=== PATIENT | male | born 1960 | race Caucasian/White ===

== ENCOUNTER 2016-10-08 06:39 | Inpatient (IN) | payer OTHER ==
[~2016-10-08] VITALS: Ht 182.9 cm; Wt 111.1 kg
--- NOTE | ~2016-10-08 | EKG ---
[address] [place] [address] ELECTROCARDIOGRAM REPORT Name: GEORGES PALOMO Room #: REG CLCassidy Nicole#: [id number] Admission: 10/08/16 Attend Phys: Jovanni Diaz MD Discharge: Date of : 58 Report #: [id number] THIS REPORT FOR: //name// [facility] Test Date: 2016-10-08 Test Time: 09:38:09 Pat Name: GEORGES PALOMO Department: Room: Gender: Record Label Internship: Bucky EDUARDO : 1960 Requested By: Jovanni Diaz Order Number: [id number] MD: David Leblanc Measurements Intervals [place] Rate: 50 P: -14 AK: 258 QRS: 48 QRSD: 102 T: 103 QT: 483 QTc: 441 Interpretive Statements Sinus rhythm Prolonged AK interval Abnormal R-wave progression, early transition Nonspecific T abnormalities, lateral leads Electronically Signed On 10-08-2016 13:08:17 DRUG COORDINATOR by David Leblanc [email or web address] <ELECTRONICALLY SIGNED> By: David Leblanc MD 10/08/16 1308 0938 7 David Leblanc MD /ELIU
--- NOTE | ~2016-10-08 | EKG ---
[address] [address] ELECTROCARDIOGRAM REPORT Name: GEORGES PALOMO Room #: 458-P DIS IN M.R.#: [id number] Admission: 10/08/16 Attend Phys: Jovanni Diaz MD Discharge: 10/09/16 Date of : 58 Report #: [id number] THIS REPORT FOR: //name// [facility] Test Date: 2016-10-09 Test Time: 06:52:49 Pat Name: GEORGES PALOMO Department: Room: 458 P Gender: M Application Trainer: juancho : 1960 Requested By: Jovanni Diaz Order Number: [id number] MD: David Leblanc Measurements Intervals [place] Rate: 57 P: -43 MN: 257 QRS: 54 QRSD: 83 T: 98 QT: 458 QTc: 446 Interpretive Statements Sinus rhythm Prolonged MN interval Abnormal R-wave progression, early transition Borderline repolarization abnormality Compared to ECG 10/08/2016 09:38:09 T-wave abnormality no longer present Electronically Signed On 10-09-2016 12:47:28 ADJUNCT PROFESSOR OF VOICE by David Leblanc [email or web address] <ELECTRONICALLY SIGNED> By: David Leblanc MD 10/09/16 1247 0652 0652 David Leblanc MD /EPI
--- NOTE | ~2016-10-08 | CATHLAB ---
[facility] [address] [place] [address] INVASIVE PROCEDURE REPORT Name: GEORGES PALOMO Room #: 458-P ADM IN M.R.#: [id number] Admission: 10/08/16 Attend Phys: Jovanni Diaz MD Discharge: Date of : 58 Date of Service: 10/08/16 0928 Report #: [id number] THIS REPORT FOR: //name// CC: Jovanni Covarrubias TYPE OF REPORT: Cardiac catheterization. INDICATION: Unstable angina, prior history of myocardial infarction with stent insertion. Full risks, benefits and alternatives of cardiac catheterization were explained to the patient. All questions were answered. Informed consent was obtained. A Barbeau test was performed on the right radial artery. The right wrist area was prepped and draped in a sterile manner. Lidocaine was given subcutaneously. A 6-Pashto sheath was inserted into the right radial artery via modified Seldinger technique. Nitroglycerin and verapamil was injected through the sheath. Five thousand units of heparin was given through peripheral IV. CORONARY ANATOMY: The left main artery is a large caliber vessel, with no flow-limiting lesions. The LAD is a epqxjrsf-ce-lcsrb size caliber vessel, travelling down the anterior wall and wrapping around the apex and terminating in the mid segment of the inferior wall. The LAD appears to supply the mid and distal segments of the inferior wall as well. There were no flow-limiting lesions in the LAD. There were some calcification and mild plaquing in the proximal and mid segments, less than 20%. The first diagonal artery is a moderate-size caliber vessel, with a severe proximal stenosis, 80%. The left circumflex artery has multiple stents in the proximal mid segments, patent with minimal residual stenosis. There is a stent extending into the first OM, patent with mild restenosis. Within this stented area is a jailed branch, the second OM, small caliber vessel with an ostial 70% stenosis. This is unchanged from his previous procedures and medical therapy is recommended. The RCA is a dominant vessel, with mild disease in the proximal and mid segments, less than 20%. The PDA is not identified. The mid and distal segments of the inferior wall are supplied by the LAD. A left ventriculogram was performed revealing ejection fraction of 45%, with focal hypokinesis of the anterior lateral segment. The LVEDP is approximately 23 mmHg. There is no gradient across the outflow tract. ANGIOPLASTY REPORT: A 6-Pashto guide was used and ACT was checked and [facility] [address] [place] [address] INVASIVE PROCEDURE REPORT Name: GEORGES PALOMO Room #: 458-P [facility] IN .R.#: [id number] Admission: 10/08/16 Attend Phys: Jovanni Diaz MD Discharge: Date of : 58 Date of Service: 10/08/16 0928 Report #: [id number] additional unit of heparin was given. I placed a Luge wire into the first diagonal artery. The proximal lesion was predilated with a 2.0 mm Euphora balloon. I then elected to place a 2.25 x 18 mm Resolute (drug-eluting stent), inflated up to 18 atmospheres. This stent was postdilated with a 2.5 mm noncompliant balloon, NC Euphora inflated up to 18 atmospheres. Final injections revealed FEI 3 blood flow with a 0% residual stenosis. IMPRESSION: 1. Successful insertion of a drug-eluting stent into the first diagonal artery. 2. Patent stents in the left circumflex/first obtuse marginal artery. 3. Severe ostial stenosis of a small second obtuse marginal artery, unchanged from prior procedures. Recommend medical therapy. 4. Mild segmental left ventricular dysfunction. 5. Recommend dual antiplatelet therapy. <ELECTRONICALLY SIGNED> By: Jovanni Diaz MD 10/09/16 0815 0928 1009 Jovanni Diaz MD /nt
--- NOTE | ~2016-10-08 | H ---
[facility] [address] [address] HISTORY AND PHYSICAL Name: GEORGES PALOMO Room #: 458-P [facility] IN M.R.#: [id number] Admission: 10/08/16 Attend Phys: Jovanni Diaz MD Discharge: 10/09/16 Date of : 58 Report #: [id number] THIS REPORT FOR: //name// For History and Physical, please see office documentation/handwritten note in the patient's medical record. <ELECTRONICALLY SIGNED> By: Jovanni Diaz MD 10/14/16 0808 1534 Jovanni Diaz MD /
--- NOTE | ~2016-10-08 | D ---
[facility] [place] [address] DISCHARGE SUMMARY Name: GEORGES PALOMO Room #: 458-P [facility] IN M.R.#: [id number] Admission: 10/08/16 Attend Phys: Jovanni Diaz MD Discharge: 10/09/16 Date of : 58 Report #: [id number] THIS REPORT FOR: //name// CC: Jovanni Covarrubias FINAL DIAGNOSES: 1. Unstable angina status post coronary intervention. 2. Paroxysmal atrial fibrillation status post history of conversion. 3. Hypertension. 4. Hypercholesterolemia. 5. Sleep apnea. HOSPITAL COURSE: The patient presented electively for cardiac catheterization. In July 2016, he presented with a mms-LH-dnuwxklad myocardial infarction, undergoing placement of stents to the left circumflex/first obtuse marginal artery. He also has a history of atrial fibrillation status post cardioversion. He presented with chest discomfort. Cardiac catheterization revealed patent stents in the left circumflex artery. There is a severe occlusion in the first diagonal artery, undergoing placement of a drug-eluting stent. He has remained hemodynamically stable overnight. The rhythm has remained sinus. In regards to his atrial fibrillation medications, there is a conflict with Pradaxa and Multaq. Since he will be on triple anti-thrombotic therapy, he will be discharged on aspirin 81 mg, Plavix 75 mg and Eliquis 2.5 mg twice a day. In addition, he will continue with Lipitor 40 mg daily, Multaq 400 mg twice a day, Toprol XL 100 mg daily and Prozac. He has given instructions for followup in the office. <ELECTRONICALLY SIGNED> By: Jovanni Diaz MD 10/10/16 0757 0823 0916 Jovanni Diaz MD /nt
[~2016-10-08 06:39] MED LIST: ASPIR 8181 MG PO; ATORVASTATIN CA40 MG PO; CLOPIDOGREL75 MG PO; FLOMAX0.4 MG PO; MOBIC15 MG PO; PRADAXA150 MG PO; PROZAC40 MG PO; TOPROL XL100 MG PO
[2016-10-08] MEDS ORDERED: MULTAQ400 MG PO (07:01)
[2016-10-08 07:10] VITALS: BP 146/87
[2016-10-08 07:23] LABS: HEMATOCRIT 42.1 % (42.0-52.0); HEMOGLOBIN 14.3 gm/dL (14.0-18.0); MCH 30.6 pg (26.0-34.0); MCHC 33.9 % (28.0-37.0); MCV 90.4 fL (80.0-100.0); RBC 4.66 mil/uL (4.50-6.00); RDW 13.8 % (10.5-14.5); WBC 7.8 thou/uL (4.0-11.0)
[2016-10-08 07:39] LABS: CALCIUM 9.1 mg/dL (8.5-10.1); CREATININE 1.2 mg/dL (0.6-1.3); POTASSIUM 4.3 mmol/L (3.5-5.1)
[2016-10-08 17:08] VITALS: BP 126/79
[2016-10-08 19:38] VITALS: BP 139/76
[2016-10-09 04:51] VITALS: BP 140/72
[2016-10-09 05:36] LABS: HEMATOCRIT 40.9 % (42.0-52.0); HEMOGLOBIN 13.6 gm/dL (14.0-18.0); MCH 30.6 pg (26.0-34.0); MCHC 33.3 % (28.0-37.0); MCV 91.8 fL (80.0-100.0); RBC 4.46 mil/uL (4.50-6.00); RDW 13.6 % (10.5-14.5); WBC 8.5 thou/uL (4.0-11.0)
[2016-10-09 05:55] LABS: CALCIUM 8.4 mg/dL (8.5-10.1); POTASSIUM 4.1 mmol/L (3.5-5.1); TROPONIN-I 0.05 ng/mL (<0.04-0.07)
[2016-10-09 08:00] VITALS: BP 117/64
[2016-10-09] MEDS ORDERED: ELIQUIS2.5 MG PO (08:16)
[2016-10-09 09:07] VITALS: BP 117/64
== END 2016-10-09 10:13 | disposition home or self-care (01) | DRG 247 ==
LOC: CATH 06:39 → 4W 17:27
PROVIDERS: Internal Medicine Cardiovascular Disease
PROC: B2111ZZ Fluoroscopy of Multiple Coronary Arteries using Low Osmolar Contrast (ICD-10-PCS; principal; 2016-10-08)
PROC: B2151ZZ Fluoroscopy of Left Heart using Low Osmolar Contrast (ICD-10-PCS; principal; 2016-10-08)
PROC: 027034Z Dilation of Coronary Artery, One Artery with Drug-eluting Intraluminal Device, Percutaneous Approach (ICD-10-PCS; principal; 2016-10-08)
PROC: 4A023N7 Measurement of Cardiac Sampling and Pressure, Left Heart, Percutaneous Approach (ICD-10-PCS; principal; 2016-10-08)
DX: I25.110 Atherosclerotic heart disease of native coronary artery with unstable angina pectoris (principal); I48.0 Paroxysmal atrial fibrillation; I10 Essential (primary) hypertension; I25.5 Ischemic cardiomyopathy; E78.00 Pure hypercholesterolemia, unspecified; G47.33 Obstructive sleep apnea (adult) (pediatric); I25.2 Old myocardial infarction; Z95.5 Presence of coronary angioplasty implant and graft
CPT/HCPCS: 10045

== ENCOUNTER → 2018-01-25 | Outpatient (CLI) | payer OTHER ==
[~2018-01-25] MED LIST changes: +ELIQUIS2.5 MG PO; +MULTAQ400 MG PO
--- NOTE | ~2018-01-25 | 2DMMODE ---
[facility] [address] [place] [address] 2 D/M-MODE ECHOCARDIOGRAM Name: GEORGES PALOMO Room #: REG [id number] Admission: 01/25/18 Attend Phys: Jovanni Diaz MD Discharge: Date of : 58 Date of Service: 01/25/18 1503 Report #: [id number] THIS REPORT FOR: //name// APPROVED REPORT Study performed: 01/25/2018 14:20:48 EXAM: Comprehensive 2D, Doppler, and color-flow Echocardiogram Patient Location: Out-Patient Room #: Echo lab 1 Status: routine BSA: 2.38 HR: 91 bpm BP: 144/86 mmHg Other Information Study Quality: Technically Difficult Indications Atrial Fibrillation CAD Hypertension/HDD 2D Dimensions IVC: 15.00 mm Volumes Left Atrial Volume (Systole) Single Plane 4CH: 69.49 mL Single Plane 2CH: 71.77 mL LA ESV Index: 34.00 mL/m2 Aortic Valve AoV Peak Arnie.: 1.65 m/s AO Peak Gr.: 10.84 mmHg LVOT Max P.34 mmHg LVOT Max V: 1.26 m/s Mitral Valve MV Decel. Time: 199.61 ms MV E Max Arnie.: 1.13 m/s IVRT: 83.04 ms Pulmonary Valve PV Peak Arnie.: 1.18 m/s PV Peak Gr.: 5.57 mmHg Left Ventricle [facility] [address] [place] [address] 2 D/M-MODE ECHOCARDIOGRAM Name: GEORGES PALOMO Room #: REG CL [facility].#: [id number] Admission: 01/25/18 Attend Phys: Jovanni Diaz MD Discharge: Date of : 58 Date of Service: 01/25/18 1503 Report #: [id number] The left ventricle is normal size. There is normal left ventricular wall thickness. The left ventricular systolic function is normal. The left ventricular ejection fraction is within the normal range. LVEF is 55-60%. This study is not technically sufficient to allow evaluation of the LV diastolic function due to atrial fibrillation. Right Ventricle The right ventricle is normal size. The right ventricular systolic function is normal. Atria Left atrium is dilated. Right atrium is borderline dilated. Aortic Valve The aortic valve is normal in structure. No aortic regurgitation is present. There is no aortic valvular stenosis. Mitral Valve The mitral valve is normal in structure. Trace mitral regurgitation. No evidence of mitral valve stenosis. Tricuspid Valve The tricuspid valve is normal in structure. There is no tricuspid valve regurgitation noted. Pulmonic Valve The pulmonary valve is normal in structure. There is no pulmonic valvular regurgitation. Great Vessels The aortic root is normal in size. IVC is normal in size and collapses >50% with inspiration. Pericardium There is no pericardial effusion. <Conclusion> The left ventricle is normal size. The left ventricular systolic function is normal. The right ventricle is normal size. Left atrium is dilated. The aortic valve is normal in structure. [facility] [address] [place] [address] 2 D/M-MODE ECHOCARDIOGRAM Name: GEORGES PALOMO Room #: REG CL [facility].#: [id number] Admission: 01/25/18 Attend Phys: Jovanni Diaz MD Discharge: Date of : 58 Date of Service: 01/25/18 1503 Report #: [id number] Trace mitral regurgitation. There is no tricuspid valve regurgitation noted. <ELECTRONICALLY SIGNED> By: Jovanni Diaz MD 01/25/18 1503 1503 150 Jovanni Diaz MD /INF
== END ==
LOC: CV 07:51
DX: I25.10 Atherosclerotic heart disease of native coronary artery without angina pectoris (principal)

== ENCOUNTER → 2018-03-01 | Outpatient (CLI) | payer OTHER ==
[2018-03-01 08:23] LABS: HEMATOCRIT 44.2 % (42.0-52.0); HEMOGLOBIN 15.2 gm/dL (14.0-18.0); MCH 31.2 pg (26.0-34.0); MCHC 34.4 g/dL (28.0-37.0); MCV 90.7 fL (80.0-100.0); RBC 4.87 mil/uL (4.50-6.00); RDW 13.9 % (10.5-14.5); WBC 7.3 thou/uL (4.0-11.0)
[2018-03-01 08:29] LABS: CALCIUM 8.8 mg/dL (8.5-10.1); CREATININE 1.2 mg/dL (0.7-1.3); POTASSIUM 4.7 mmol/L (3.5-5.1)
[2018-03-01 08:35] LABS: ALBUMIN 4.2 g/dL (3.4-5.0); TOTAL BILIRUBIN 0.7 mg/dL (<0.1-1.0); TOTAL PROTEIN 7.2 g/dL (6.4-8.2)
== END ==
LOC: LAB 07:44
PROVIDERS: Internal Medicine Cardiovascular Disease
DX: I25.10 Atherosclerotic heart disease of native coronary artery without angina pectoris (principal); I89.8 Other specified noninfective disorders of lymphatic vessels and lymph nodes; J84.10 Pulmonary fibrosis, unspecified; M47.815 Spondylosis without myelopathy or radiculopathy, thoracolumbar region

== ENCOUNTER 2018-03-05 06:40 | Outpatient (CLI) | payer OTHER ==
[~2018-03-05] VITALS: Ht 182.9 cm; Wt 108.4 kg
--- NOTE | ~2018-03-05 | P ---
[facility] [place] [address] PROCEDURE REPORT Name: GEORGES PALOMO Room #: 208-P [facility]..#: [id number] Admission: 03/05/18 Attend Phys: David Leblanc MD Discharge: Date of : 58 Report #: [id number] THIS REPORT FOR: //name// CC: Loyd Leblanc DATE OF SERVICE: 03/05/2018 PREOPERATIVE DIAGNOSIS: Atrial fibrillation. POSTOPERATIVE DIAGNOSIS: Atrial fibrillation. HISTORY: The patient is a 57-year-old male with a history of atrial fibrillation, here for an AFib ablation. PROCEDURES PERFORMED: 1. Atrial fibrillation ablation, CPT code 17186. 2. 3D mapping, CPT code 35430. 3. Intracardiac echo, CPT code 33547. DESCRIPTION OF PROCEDURE: The patient underwent informed consent. We discussed the details of the procedure including the risks include, which include, but not limited to bleeding, infection, vascular damage as well as stroke or NH. He understood these risks and was willing to proceed. Prior to the ablation, I discussed that it appeared that he had a persistent SVC and that we may need to obtain subclavian access, which is unusual for such a case, but he was willing to proceed with this as well. As such, the patient was brought to the EP laboratory in the fasting and unsedated state. On his cardiac CT scan, there was evidence of a persistent SVC. Given that I would need to perform phrenic nerve pacing for the ablation, I decided to perform bilateral venograms prior to sedating the patient. The left venogram showed that there was a persistent SVC that continued as the coronary sinus and entered the right atrium. A right-sided venogram showed that the right subclavian vessel did not enter the atrium via traditional course, but crossed over and connected with the persistent SVC. As such, phrenic nerve pacing would potentially not be possible for cryoablation. As such, the patient was sedated in a standard fashion and I obtained access to the right femoral vein times 3 placing an 8-Kyrgyz, 9-Kyrgyz and 7-Kyrgyz short sheath using the modified Seldinger technique. Next, I placed a decapolar catheter, which entered into the persistent SVC and I could advance this up the coronary sinus up into the SVC beyond the cardiac silhouette. I attempted to advance this and cross the midline so I could potentially pace the right subclavian, but this deemed challenging. As such, I attempted to pace the right atrium with the decapolar catheter high in the right atrium. This was unsuccessful; therefore, I opened up a Lasso catheter and created a 3-D geometry of the right atrium and [facility] [address] [place] [address] PROCEDURE REPORT Name: GEORGES PALOMO Room #: 208-P [facility] BIN Nicole#: [id number] Admission: 03/05/18 Attend Phys: David Leblanc MD Discharge: Date of : 58 Report #: [id number] paced all along the superior aspect of the right atrium. I was not able to pace the phrenic from the most superior aspect of the right atrium. As such, I obtained access to the left axillary vein x 1 and placed a 6-Kyrgyz short sheath using a modified Seldinger technique. I then performed a venogram via this and I was able to localize the vessel that crossed to the right subclavian vein. I therefore advanced a diagnostic quadripolar catheter via this branch at where I thought the subclavian must sit. Pacing here at high output resulted in phrenic nerve capture. As such, I could proceed with ablation of his atrial fibrillation using a cryoballoon. Of note, with intracardiac ultrasound, there were 2 left-sided veins that shared a common ostium. There was a large left atrial appendage and there were separate right superior and right inferior pulmonary veins. He did have a nice thin interatrial septum, but did have a large patent foramen ovale. Furthermore, there was a very large coronary sinus ostium. I therefore placed my long wire across the PFO and placed the wire deep into the left superior pulmonary vein. I then advanced my SL1 sheath into the right atrium near the level of the PFO. Prior to performing transseptal, I did give the patient 10,000 of heparin. I then pulled my wire back and pulled my SL1 out of the PFO and into the interatrial septum, had a nice anterior position along the mid septum. Using my Trafford needle, I was able to cross the septum quite easily, and I then exchanged the SL1 for the cryocath sheath. Next, we started the ablation. At baseline, the patient was in atrial fibrillation with a ventricular rate of 940 milliseconds, QRS duration 85 milliseconds, QT interval 365 milliseconds. I performed a total of 4 freezes in the left superior pulmonary vein. The attempts were not very good. The most negative temperature I could get was -34. On the fourth freeze, I finally isolated the vessel in about 29 seconds and I performed a freeze here for 4 minutes. I then turned my attention to the left inferior pulmonary vein and performed 3 freezes, one was 240 seconds, the next was 300 seconds and the final freeze was 270 milliseconds. The maximum minus temperature was -36, -38 and -42. The vein still was not isolated. I then turned my attention to the right superior pulmonary vein and we performed phrenic nerve pacing from our quadripolar catheter. This vein isolated during the first freeze as the attempts were very cold. There was some mild weakening of the phrenic nerve, but this resolved completely after approximately a minute or 2. I therefore performed one additional freeze of 4 minutes duration with a maximal negative temperature of -33 degrees. This vessel was clearly isolated. Next, I turned my attention to the right inferior pulmonary vein and this vein had a challenging anatomy. Some of this was likely my transseptal site. I performed a total of 3 freezes in this vein, all of 4 minutes duration and there was still some persistence of electrograms noted. As such, I performed a cardioversion and I interrogated the veins; therefore it became clear that the left-sided veins remained connected and therefore, I decided to open up a SmartTouch ThermoCool and I performed a second transseptal using another SL1 sheath and I therefore isolated this vein very easily. There was an area along the anterior heidy that had some small electrograms and after about 30 seconds of ablation at this site, there was isolation of the left superior pulmonary vein. I did perform ablation along [address] [address] PROCEDURE REPORT Name: GEORGES PALOMO Room #: 208-P [facility] Bonnie#: [id number] Admission: 03/05/18 Attend Phys: David Leblanc MD Discharge: Date of : 58 Report #: [id number] this heidy as there was persistence of large signals based on her MAP. I then moved the Lasso catheter into the common ostium and into the inferior and superior branches and there was clearly entrance and exit block. I then turned my attention to the right inferior pulmonary vein. This vein remained connected. There was an area of connection along the inferior anterior aspect of this vessel based on mapping. Ablation along these electrograms resulted in isolation with entrance and exit block. As such, this procedure was concluded and quite long in duration due to the persistent SVC, I needed to obtain access there at the somewhat challenging transseptal given that there is no standard way to perform this transseptal without the SVC and difficulty isolating the vessels. I did discuss with the patient that if he were to require pacemaker in the future that right-sided device would not be an option at all and that most likely, a left-sided device via his persistent SVC would be the most prudent approach. Post ablation, the patient was in sinus rhythm with sinus cycle length of 835 milliseconds, IL interval 240 milliseconds, QRS duration 85 milliseconds with a QT interval 460 milliseconds. As such, the catheters were pulled to the right atrium. I used intracardiac ultrasound to verify that there was no pericardial effusion. The patient received systemic protamine and once ACT was within acceptable range, catheters and sheaths were pulled. Hemostasis was obtained and the patient awoke neurologically and hemodynamically intact. CONCLUSIONS: 1. Successful atrial fibrillation ablation using combination SmartTouch and cryoablation. 2. Evidence of entrance and exit block of all vessels. 3. 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 By: 1546 0437 David Leblanc MD /nt
--- NOTE | ~2018-03-05 | D ---
[facility] [place] [address] DISCHARGE SUMMARY Name: GEORGES PALOMO [id number] Admission: 03/05/18 Attend Phys: David Leblanc MD Discharge: Date of : 58 Report #: [id number] THIS REPORT FOR: //name// CC: Loyd Leblanc DISCHARGE DIAGNOSES: 1. Atrial fibrillation. 2. Persistent superior vena cava. PROCEDURES PERFORMED: Atrial fibrillation ablation. HISTORY OF PRESENT ILLNESS: The patient is a 57-year-old male with a history of atrial fibrillation, here for an AFib ablation. On his preoperative cardiac CT scan, there was evidence for a persistent SVC. Prior to the ablation, we performed a venogram of both the right and left upper extremities. The left upper extremity showed a persistent SVC. The right venogram showed that the right subclavian did not enter the right atrium, but actually connected with the persistent SVC. An AFib ablation was performed and was successful without complications. I did obtain left subclavian access, so that I could perform pacing of his right phrenic nerve. All veins were successfully isolated with a combination of cryoablation and radiofrequency ablation. HOSPITAL COURSE: The patient was monitored in the CCU overnight. The patient did well without any issues. The patient denied any chest pain, shortness of breath, fevers or chills. PHYSICAL EXAMINATION: HEART: Regular rate and rhythm. LUNGS: Clear to auscultation. SKIN: His access sites at the left subclavian and the right femoral groin region show no significant hematoma or bruising. RADIOGRAPHIC DATA: He did have a chest x-ray this morning, which showed no evidence of pneumothorax. The patient on telemetry had no atrial fibrillation, but did have 2-3 bursts of atrial tachycardia, the longest of which lasted less than 10 seconds. As such, the patient was deemed stable for discharge home. We did discuss that given his left persistent SVC that if he were to need a pacemaker implanted in the future, this will make it slightly more challenging. However, he does not have the option of having a pacemaker placed from the right side, as there is no direct connection from the right subclavian to the right atrium. He will continue with Multaq therapy and anticoagulation. [facility] [address] [place] [address] DISCHARGE SUMMARY Name: GEORGES PALOMO Room #: 208-P [facility] Nicole#: [id number] Admission: 03/05/18 Attend Phys: David Leblanc MD Discharge: Date of : 58 Report #: [id number] Discharge instructions were reviewed and he will see me back in the clinic in approximately 3 months. By: 1145 1213 David Leblanc MD /nt
[2018-03-05] MEDS ORDERED: ELIQUIS5 MG PO (06:58)
[2018-03-05 07:09] VITALS: BP 135/88
[2018-03-05 07:32] LABS: HEMATOCRIT 42.7 % (42.0-52.0); HEMOGLOBIN 14.6 gm/dL (14.0-18.0); MCHC 34.2 g/dL (28.0-37.0); MCV 90.9 fL (80.0-100.0); RBC 4.71 mil/uL (4.50-6.00); RDW 13.9 % (10.5-14.5); WBC 6.3 thou/uL (4.0-11.0)
[2018-03-05 07:41] LABS: APTT 25.9 Seconds (24.5-32.8)
[2018-03-05 07:52] LABS: CALCIUM 8.6 mg/dL (8.5-10.1); CREATININE 1.2 mg/dL (0.7-1.3); POTASSIUM 4.6 mmol/L (3.5-5.1)
[2018-03-05 07:57] LABS: TOTAL BILIRUBIN 0.6 mg/dL (<0.1-1.0); TOTAL PROTEIN 7.1 g/dL (6.4-8.2)
[2018-03-05 16:00] VITALS: BP 135/89
[2018-03-05 19:46] VITALS: BP 114/73
[2018-03-05 23:39] VITALS: BP 138/74
[2018-03-06 05:27] VITALS: BP 137/75
[2018-03-06 08:00] VITALS: BP 128/82
[2018-03-06 12:00] VITALS: BP 136/82
[2018-03-06 12:07] VITALS: BP 136/82
== END 2018-03-06 12:35 | disposition home or self-care (01) ==
LOC: CATH 06:40 → 2N 16:07 → CATH 03-06 12:35
PROVIDERS: Internal Medicine Cardiovascular Disease
DX: I48.91 Unspecified atrial fibrillation (principal); I10 Essential (primary) hypertension; I25.2 Old myocardial infarction; E78.5 Hyperlipidemia, unspecified; G47.33 Obstructive sleep apnea (adult) (pediatric); Z98.890 Other specified postprocedural states; Z87.442 Personal history of urinary calculi; Z95.5 Presence of coronary angioplasty implant and graft; Z87.891 Personal history of nicotine dependence; Z98.52 Vasectomy status; Z79.82 Long term (current) use of aspirin; Z79.899 Other long term (current) drug therapy
CPT/HCPCS: 10081; 62110; 62900; 70005

== ENCOUNTER → 2019-01-24 | Outpatient (CLI) | payer OTHER ==
[~2019-01-24] MED LIST changes: +ELIQUIS5 MG PO
== END ==
LOC: NUC 07:24
DX: I25.10 Atherosclerotic heart disease of native coronary artery without angina pectoris (principal); E78.5 Hyperlipidemia, unspecified; I48.91 Unspecified atrial fibrillation; I10 Essential (primary) hypertension; Z87.891 Personal history of nicotine dependence

== ENCOUNTER → 2019-03-04 | Outpatient (CLI) | payer OTHER ==
[~2019-03-04] VITALS: Ht 182.9 cm; Wt 115.2 kg
--- NOTE | ~2019-03-04 | P ---
[facility] [place] [address] PROCEDURE REPORT Name: GEORGES PALOMO Room #: REG BIN Lang.#: [id number] Admission: 03/04/19 ������������������ Attend Phys: David Leblanc MD Discharge: ������������������ Date of : 58 Report #: [id number] THIS REPORT FOR: //name// CC: Jovanni Leblanc PROCEDURE: Cardioversion. PREOPERATIVE DIAGNOSIS: Atrial fibrillation. POSTOPERATIVE DIAGNOSIS: Atrial fibrillation. DESCRIPTION OF PROCEDURE: The patient underwent informed consent. He was prepped in the standard fashion. The patient was sedated by the Anesthesiology Service. Once sedated, he underwent a 200 joule synchronized cardioversion with sabianist of sinus rhythm. There were no procedure related complications. CONCLUSIONS: Successful DC cardioversion with sabianist of sinus rhythm. ��������������������������������������������� ���������������������������������������� By: ��������������������������������������������� 1129 08 David Leblanc MD /nt
[2019-03-04 07:42] VITALS: BP 133/76
[2019-03-04 08:00] LABS: HEMATOCRIT 41.6 % (42.0-52.0); MCHC 33.6 g/dL (28.0-37.0); MCV 92.2 fL (80.0-100.0); RBC 4.51 mil/uL (4.50-6.00); RDW 14.3 % (10.5-14.5); WBC 6.1 thou/uL (4.0-11.0)
[2019-03-04 08:12] LABS: CALCIUM 8.9 mg/dL (8.5-10.1); CREATININE 1.1 mg/dL (0.7-1.3)
[2019-03-04 08:18] LABS: ALBUMIN 3.9 g/dL (3.4-5.0); TOTAL BILIRUBIN 0.6 mg/dL (<0.1-1.0); TOTAL PROTEIN 7.3 g/dL (6.4-8.2)
[2019-03-04 08:19] LABS: APTT 28.2 Seconds (24.5-32.8); PROTIME 10.4 Seconds (9.3-11.4)
== END | disposition home or self-care (01) ==
LOC: CATH 07:23
PROVIDERS: Internal Medicine Cardiovascular Disease
DX: I48.91 Unspecified atrial fibrillation (principal); I10 Essential (primary) hypertension; E78.5 Hyperlipidemia, unspecified; I25.2 Old myocardial infarction; E66.09 Other obesity due to excess calories; G47.30 Sleep apnea, unspecified; K21.9 Gastro-esophageal reflux disease without esophagitis; Z87.891 Personal history of nicotine dependence; Z79.01 Long term (current) use of anticoagulants; Z87.442 Personal history of urinary calculi; Z98.52 Vasectomy status; Z79.899 Other long term (current) drug therapy; Z98.890 Other specified postprocedural states
CPT/HCPCS: 62110; 62900

== ENCOUNTER → 2020-10-05 | Outpatient (CLI) | payer OTHER | LOC: LAB 07:34 | PROVIDERS: ATTEND Internal Medicine Cardiovascular Disease | DX: Z01.812 Encounter for preprocedural laboratory examination (principal); Z20.822 Contact with and (suspected) exposure to COVID-19 ==

== ENCOUNTER → 2020-10-10 | Outpatient (CLI) | payer OTHER ==
[~2020-10-10] VITALS: Ht 182.9 cm; Wt 119.7 kg
[2020-10-10 10:00] VITALS: BP 151/87
[2020-10-10 10:20] LABS: ABSOLUTE NEUTROPHILS 4.4 thou/uL (1.4-8.2); EOSINOPHILS 2.4 % (0.0-3.0); HEMATOCRIT 43.4 % (42.0-52.0); HEMOGLOBIN 14.6 gm/dL (14.0-18.0); LYMPHOCYTES 20.6 % (24.0-44.0); MCH 31.2 pg (26.0-34.0); MCHC 33.7 g/dL (28.0-37.0); MCV 92.7 fL (80.0-100.0); PLATELET COUNT 194 thou/uL (150-400); RBC 4.69 mil/uL (4.50-6.00); RDW 13.4 % (10.5-14.5); WBC 6.4 thou/uL (4.0-11.0)
[2020-10-10 10:29] LABS: CREATININE 1.1 mg/dL (0.7-1.3); POTASSIUM 4.1 mmol/L (3.5-5.1)
[2020-10-10 10:35] LABS: TOTAL BILIRUBIN 0.9 mg/dL (0.2-1.0); TOTAL PROTEIN 7.2 g/dL (6.4-8.2)
[2020-10-10 10:40] LABS: APTT 25.3 Seconds (24.5-32.8); PROTIME 10.3 Seconds (9.3-11.4)
--- NOTE | 2020-10-10 11:52 | EKG ---
[facility] [place] [address] [place] [address] ELECTROCARDIOGRAM REPORT Name: GEORGES PALOMO Room #: REG CLI [facility].#: [id number] Admission: 10/10/20 Attend Phys: David Leblanc MD Discharge: Date of : 58 Report #: [id number] [facility] Test Date: 2020-10-10 Test Time: 11:14:03 Pat Name: GEORGES PALOMO Department: Room: Gender: Client Experience Manager: SBULOW : 1960 Requested By: David Leblanc Order Number: [id number] MD: Mohit Brooks Measurements Intervals [place] Rate: 53 P: -31 UT: 290 QRS: 44 QRSD: 89 T: 107 QT: 475 QTc: 446 Interpretive Statements Sinus rhythm Multiple premature complexes, vent & supraven Prolonged UT interval Nonspecific T abnrm, anterolateral leads Compared to ECG 10/09/2016 06:52:49 No significant changes Electronically Signed On 10-10-2020 11:52:12 TRY ON BASTER by Mohit Brooks [email or web address] <ELECTRONICALLY SIGNED> By: Mohit Brooks MD, [facility] 10/10/20 1152 1114 1114 Mohit Brooks MD, [facility] /EPI
== END ==
LOC: CATH 09:05
PROVIDERS: ATTEND Internal Medicine Cardiovascular Disease
DX: I48.0 Paroxysmal atrial fibrillation (principal); Q26.1 Persistent left superior vena cava; I10 Essential (primary) hypertension; G47.33 Obstructive sleep apnea (adult) (pediatric); Z98.890 Other specified postprocedural states; E78.5 Hyperlipidemia, unspecified; I25.10 Atherosclerotic heart disease of native coronary artery without angina pectoris; Z79.82 Long term (current) use of aspirin; Z79.899 Other long term (current) drug therapy; E78.00 Pure hypercholesterolemia, unspecified; I25.2 Old myocardial infarction; Z87.891 Personal history of nicotine dependence; Z98.52 Vasectomy status
CPT/HCPCS: 62110; 62900

== ENCOUNTER → 2020-10-12 | Outpatient (CLI) | payer OTHER | LOC: SJCVCIMAG 13:17 | PROVIDERS: ATTEND Internal Medicine Cardiovascular Disease | DX: I34.0 Nonrheumatic mitral (valve) insufficiency (principal); I51.7 Cardiomegaly; I25.10 Atherosclerotic heart disease of native coronary artery without angina pectoris; I48.0 Paroxysmal atrial fibrillation ==

== ENCOUNTER → 2020-10-17 | Outpatient (CLI) | payer OTHER | LOC: SJCVCIMAG 08:42 | PROVIDERS: ATTEND Internal Medicine Cardiovascular Disease | DX: I25.10 Atherosclerotic heart disease of native coronary artery without angina pectoris (principal); I49.3 Ventricular premature depolarization; I48.0 Paroxysmal atrial fibrillation; I25.5 Ischemic cardiomyopathy; E78.5 Hyperlipidemia, unspecified; I10 Essential (primary) hypertension; Z79.899 Other long term (current) drug therapy; Z87.891 Personal history of nicotine dependence ==

== ENCOUNTER → 2021-11-01 | Outpatient (CLI) | payer OTHER | LOC: SJCVCIMAG 09:21 | PROVIDERS: ATTEND Internal Medicine Cardiovascular Disease | DX: I49.3 Ventricular premature depolarization (principal); I48.0 Paroxysmal atrial fibrillation; I25.10 Atherosclerotic heart disease of native coronary artery without angina pectoris; I10 Essential (primary) hypertension; E78.5 Hyperlipidemia, unspecified; R06.00 Dyspnea, unspecified; Z87.891 Personal history of nicotine dependence; Z79.899 Other long term (current) drug therapy; Z88.8 Allergy status to other drugs, medicaments and biological substances ==